=== PATIENT | male | born 1955 | race Caucasian/White ===

== ENCOUNTER 2021-12-25 08:06 | Day surgery (SDC) | payer OTHER ==
[2021-12-23 17:33] VITALS: BMI 27.1
[2021-12-25 10:12] VITALS: TEMP 97.6
[2021-12-25 10:15] VITALS: BP 111/71; PULSE 70
== END 2021-12-25 10:25 | disposition home or self-care (01) ==
LOC: FASU-ENDO 08:06
PROVIDERS: ATTEND Internal Medicine Gastroenterology
PROC: 0DB98ZX Excision of Duodenum, Via Natural or Artificial Opening Endoscopic, Diagnostic (ICD-10-PCS; 2021-12-25)
PROC: 0DB68ZX Excision of Stomach, Via Natural or Artificial Opening Endoscopic, Diagnostic (ICD-10-PCS; 2021-12-25)
PROC: 0DBN8ZX Excision of Sigmoid Colon, Via Natural or Artificial Opening Endoscopic, Diagnostic (ICD-10-PCS; principal; 2021-12-25 09:10)
DX: Z86.010 Personal history of colon polyps (principal); D12.5 Benign neoplasm of sigmoid colon; K57.30 Diverticulosis of large intestine without perforation or abscess without bleeding; K29.50 Unspecified chronic gastritis without bleeding; R12 Heartburn
CPT/HCPCS: 88305-TC; 88342-TC

== ENCOUNTER 2021-12-27 14:55 | Emergency (ER) | payer OTHER ==
[2021-12-27 16:08] LABS: ALBUMIN 3.9 g/dl (3.4-5.0); BILIRUBIN,TOTAL 0.7 mg/dl (0.2-1); CALCIUM 8.9 mg/dl (8.5-10); CREATININE 0.7 mg/dl (0.55-1.3); TOT PROT 6.9 g/dl (6.4-8.2)
[2021-12-27 16:39] VITALS: BP 145/91; PULSE 73; TEMP 98.2; BMI 27.1
[2021-12-27 17:10] LABS: BASO % 0.6 % (0-2.0); EOS % 4.5 % (0-4.5); HEMATOCRIT 39.7 % (35.4-49); HEMOGLOBIN 13.7 GM/dL (11.7-16.9); LYMPH % 28.6 % (8-40); MCH 29.7 pg (25.7-33.7); MCHC 34.6 g/dl (32.0-35.9); MEAN CELL VOLUME 85.6 fl (80-96); MEAN PLT VOLUME 8.1 fl (7.5-11.1); MONO % 7.4 % (3.8-10.2); NEUT % 58.9 % (42.8-82.8); PLATELET COUNT 201 10^3/uL (134-434); RBC 4.63 M/mm3 (4.00-5.60); RDW 13.4 % (11.9-15.9)
== END 2021-12-27 19:02 | disposition home or self-care (01) ==
LOC: FER 14:55
DX: R10.9 Unspecified abdominal pain (principal)
CPT/HCPCS: 36415; 74177-TC; 80053; 81003; 85025; 87086; 99285-25; Q9967